=== PATIENT | male | born 1965 | race Caucasian/White ===

== ENCOUNTER 2017-12-27 18:05 | Emergency (ER) | payer OTHER, SELFPAY ==
[2017-12-27 18:06] VITALS: BP 238/150; PULSE 84; RESP 16; TEMP 36.5; O2SAT 97; BMI 39.9
--- NOTE | 2017-12-27 19:14 | US_ITS ---
STUDY: VENOUS DOPPLER ULTRASOUND - RIGHT LOWER EXTREMITY REASON FOR EXAM: Male, 52 years old. Redness and swelling. Cellulitis. TECHNIQUE: Ultrasound evaluation of the deep vein system to include ramirez-scale imaging and compression was performed. Ramirez-scale imaging and Doppler sonographic evaluation, including duplex spectral analysis and qualitative color flow sonography, was performed. COMPARISON: None. FINDINGS: Common Femoral Vein: Normal compression, spontaneity and augmentation. Normal color Doppler. Common Femoral Vein/Greater Saphenous Junction: Normal compression, spontaneity and augmentation. Normal color Doppler. Deep Femoral Vein: Normal compression, spontaneity and augmentation. Normal color Doppler. Femoral Proximal: Normal compression, spontaneity and augmentation. Normal color Doppler. Femoral Middle: Normal compression, spontaneity and augmentation. Normal color Doppler. Femoral Distal: Normal compression, spontaneity and augmentation. Normal color Doppler. Popliteal Vein: Normal compression, spontaneity and augmentation. Normal color Doppler. Posterior Tibial Vein: Normal compression, spontaneity and augmentation. Normal color Doppler. Peroneal Vein: Normal compression, spontaneity and augmentation. Normal color Doppler. There is no demonstrated deep venous thrombosis. US/Venous Duplex Imag/Limited/Uni IMPRESSION: Normal venous Doppler ultrasound of the lower extremity. Electronically Signed: Ash Knight MD at 20:30 EDT , Service support ,
--- NOTE | 2017-12-27 19:14 | ED.VISSUMM ---
- ER Visit Summary Date of Service: 12/27/17 Chief Complaint: Cellulitis History of Present Illness: The patient is a 52 M states he has had spontaneous onset of redness, swelling, pain in the right lower extremity that started 10 days ago but spread quickly within a day that it started. He was seen at urgent care started on Keflex 500 mg 3 times daily ?10 days, he has had significant improvement but the swelling is not gone and it is still faintly red but barely sore now. He went back to urgent care to have them look at it since today is his last day of Keflex. They sent him here. There was no phone call from urgent care. Physical Examination: Vital signs are normal he is well-appearing in no acute distress. He has very faint erythema that is blanching and warmth throughout the right lower leg, stops before the knee. The area is edematous. There is no calf tenderness or Homans sign. Compartments are soft and nondistended and nontender. There are no petechia or purpura. There is a healing small scabbed wound distally just above the lateral malleolus, no abscess. Full range of motion of all joints. Neurovascularly intact distally. Test Results: Duplex venous ultrasound of the right lower extremity is negative for DVT. Emergency Department Course and Treatment: Reassured patient there is no sign of DVT. The appearance of his leg is barely erythematous and swollen, nontender. However, since it is still abnormal, I think he should extend the antibiotic further, as it sounds like cellulitis is the correct diagnosis. I will give him a dose of Zosyn here and extend his cephalexin, he is encouraged to follow-up with a PCP to follow this, as opposed to return outpatient visits to urgent care. Treatment Plan: As above with cephalexin 500 mg 4 times daily ?5 additional days Disposition: Discharge home Impression: Cellulitis right lower leg, improving This note was generated with [employer] dictation software. It may contain incorrect words, spelling, and punctuation that were not noted in review of the chart prior to signing ED Disposition - Plan for ED Patient: Disposition: Home or Assisted Living Chief Complaint: Cellulitis Instructions: Discharge Instructions for Cellulitis Prescriptions: Cephalexin [Keflex] 500 mg PO 4X/DAY #20 cap Referrals: Silvana Kumar DO [STAFF PHYSICIAN] - 2 Days for wound check
[2017-12-27 22:37] VITALS: BP 198/98; PULSE 84; RESP 18; O2SAT 98; O2SAT 99
== END 2017-12-27 22:43 | disposition home or self-care (01) ==
PROVIDERS: Emergency Provider Emergency Medicine
DX: L03.115 Cellulitis of right lower limb (principal); B96.89 Other specified bacterial agents as the cause of diseases classified elsewhere; E66.9 Obesity, unspecified; Z68.39 Body mass index [BMI] 39.0-39.9, adult
CPT/HCPCS: 93971; 96365; 99283; J7050; A4216

== ENCOUNTER 2023-07-11 10:54 | Emergency (ER) | payer BC, OTHER, SELFPAY ==
[2023-07-11] VITALS (13 sets, daily range): BP systolic 167–226; BP diastolic 86–149; PULSE 71–91; RESP 18–27; TEMP 35.7; O2SAT 91–96; BMI 38.9
--- NOTE | 2023-07-11 11:06 | NURSING ---
STROKE ALERT CALLED
--- NOTE | 2023-07-11 11:08 | CT_ITS ---
We are attempting to reach an attending provider to discuss findings. An addendum with communication details will be sent when the communication is complete. EXAM: CT HEAD WITHOUT INTRAVENOUS CONTRAST CLINICAL INDICATION: Neuro deficit, acute, stroke suspected TECHNIQUE: Multiple axial images were obtained of the head without intravenous contrast. This CT exam was performed using one or more of the following dose reduction techniques: automated exposure control, adjustment of the mA and/or kV according to patient size, and/or use of iterative reconstruction technique. COMPARISON: No relevant prior studies available. FINDINGS: BRAIN AND EXTRA-AXIAL SPACES: There is a large intraparenchymal hematoma centered in the right parietal lobe measuring approximately 4.3 x 5.8 x 5.8 cm (approximately 75 mL) with surrounding vasogenic edema and localized mass effect resulting in sulcal effacement and asymmetric narrowing of the right lateral ventricle. Associated proximally 6 mm right left shift of the midline structures at the level of the septum pellucidum. Patent basal cisterns. Patchy white matter hypoattenuation is most commonly due to chronic microvascular ischemic changes in a patient of this age. Chronic microvascular ischemic changes. No evidence of an acute infarct. BONES/JOINTS: Bilateral TMJ arthrosis. No discrete lytic or blastic abnormalities. SINUSES: No significant findings. MASTOID AIR CELLS: No significant effusion. ORBITS: No acute findings. NASAL CAVITY/SEPTUM: Postoperative changes of the paranasal sinuses with diffuse polypoid mucosal thickening in the paranasal sinuses suggesting sinonasal polyposis. ASPECTS: Not applicable. CT/STROKE Brain/Head without Cont IMPRESSION: 1. There is a large intraparenchymal hematoma centered in the right parietal lobe measuring approximately 4.3 x 5.8 x 5.8 cm (approximately 75 mL) with surrounding vasogenic edema and localized mass effect resulting in sulcal effacement and asymmetric narrowing of the right lateral ventricle. Associated proximally 6 mm right left shift of the midline structures at the level of the septum pellucidum. 2. Patchy white matter hypoattenuation is most commonly due to chronic microvascular ischemic changes in a patient of this age. 3. Postoperative changes of the paranasal sinuses with diffuse polypoid mucosal thickening in the paranasal sinuses suggesting sinonasal polyposis. Correlate with history and follow-up as clinically indicated. Electronically Signed: Lv Lin DO at 11:32 EDT ,
--- NOTE | 2023-07-11 11:09 | ED.VIS.STROK ---
HPI History of Present Illness Chief Complaint: Confusion Informant: patient and family Narrative Narrative: Patient brought in by family member around 11 AM due to being confused this morning. He was last seen well and normal last night when he went to bed, estimated around 9 PM. Today he bumped into his son in the garage and not realizing he was right in front of him, and his son told family member that he seemed confused. That was the first time that something wrong was noticed. Patient states he has some discomfort in the right posterior side of his neck but he does not have a headache. He states his vision was off earlier but it seems better now. Denies any chest pain, shortness of breath, recent fall or injury. He was able to walk into triage with family member but staff noted that it was not normal. He does not see a doctor. Family states he called his doctors whenever something is wrong but otherwise does not see them and takes no medications, [id number] or prescription. Family states they checked his blood sugar at home and it was in the 120s, and he also checked his blood pressure prior to coming here and it was 205 systolic. [facility] Medical History Asthma Hypertension Left leg cellulitis Uncontrolled hypertension Home Medications doxycycline monohydrate 100 mg capsule 100 mg PO BID #20 caps 05/20/22 [Rx Last Taken Unknown] sulfamethoxazole 800 mg-trimethoprim 160 mg tablet (Bactrim DS) 1 tab PO BID 05/20/22 [History Last Taken Unknown] Allergy/AdvReac Type Severity Reaction Status Date / Time No Known Allergies Allergy Verified 07/11/23 10:56 Social History Smoking Status: Never smoker ROS ROS ED Review of Systems ROS Unobtainable: other Details: Somewhat limited due to confusion/mental status Constitutional Constitutional ED: Denies chills or fever(s) Eyes Eyes: Reports change in vision; Denies diplopia ENT ENT ED: Denies rhinorrhea or sore throat Cardiovascular Cardiovascular: Reports leg edema; Denies chest pain or palpitations Respiratory/Chest Respiratory/Chest: Denies cough or dyspnea Gastrointestinal Gastrointestinal: Denies abdominal pain, nausea or vomiting Musculoskeletal Musculoskeletal: Reports neck pain; Denies back pain Integumentary Denies abscess or rash Neurologic Neurologic: Reports as per HPI and confusion; Denies headache(s) Psychiatric Psychiatric: Denies suicidal ideation or suicidal thoughts EXAM Physical Exam Const Vital Signs: 07/11/23 10:56 07/11/23 11:11 07/11/23 11:15 Temperature 96.2 F L Temperature Source Temporal Pulse Rate 89 Respiratory Rate 18 Blood Pressure 226/149 H Blood Pressure Mean 174 Pulse Ox 96 96 94 Oxygen Delivery Method Room Air Room Air Room Air 07/11/23 11:15 Temperature Temperature Source Pulse Rate 91 Respiratory Rate 27 H Blood Pressure 209/149 H Blood Pressure Mean 169 Pulse Ox 94 Oxygen Delivery Method Room Air Positive well nourished and well developed General Appearance ED: well developed and NAD HEENT Reports moist mucous membranes normocephalic and atraumatic Eyes PERRL and EOMs intact bilaterally Eyes Narrative: Left hemianopsia, involving both eyes Neck full ROM and supple Neck Narrative: Carotid bruits Chest Wall inspection of chest normal and palpation of chest normal Resp normal respiratory effort and clear to auscultation bilaterally Cardio regular rate, regular rhythm and no murmurs GI non-tender and non-distended Auscultation: normoactive bowel sounds Palpation: soft Back/Spine no CVA tenderness General Back: other FROM Extremity normal to inspection General Extremety ED: Yes edema; Negative for pulses abnormal or tenderness General Extremity: edema bilateral lower extremity Details: moderate (Without signs of cellulitis/tenderness); Negative for pulses abnormal Neuro CN's II-XII intact bilaterally Neuro Narrative: Somewhat disoriented, but correct month and age and oriented to person and place. Weak on left side see attached NIHSS Sensorium / Orientation: awake and alert Psych Psych Narrative: Flat affect Skin no rashes or lesions noted and no wounds NIHSS NIHSS Initial: 1a Level of Consciousness: 0 1b LOC Questions (Score 2 if aphasic/stupor): 0 1c LOC Commands (Only score 1st attempt): 0 2 Best Gaze (If aphasic, use reflexive mvmts.): 1 3 Visual: 2 4 Facial Palsy: 0 5 Motor Arm Right (UN = amputation/fusion): 0 5 Motor Arm Left: 3 6 Motor Leg Right: 1 6 Motor Leg Left: 2 7 Limb ataxia (Only + if out of proportion): 0 8 Sensory (Aphasia/stupor=0 or 1, coma=2): 1 9 Best Language: 0 10 Dysarthria (mute, coma=2, intubated=UN): 1 11 Extinction and Inattention (only scored if +): 0 Total Score: 11 MDM MDM MDM Narrative Medical decision making narrative: Patient was brought from triage to her room and assessed by myself and nursing expeditiously upon arrival, and noticed that he has acute neurologic deficits and stroke team was called before my exam was finished, and he was sent to CT expeditiously, seen that it is an acute hemorrhage, approximately 5-6 mm shift according to radiology without herniation and the hematoma is approximately 75 mL, discussed with family who are comfortable with him going to [facility], discussed with neurosurgery there and arranging for helicopter transportation. In the meantime orders were manipulated, in order to get him on Cardene and keep his blood pressure is under control as we can. At this time there is maybe a millimeter of shift, with this hemorrhage it does not intraventricular and the ventricles appear to be open, and clinically he is keenly alert with patent airway and breathing and I do not think he needs to be intubated at this time which I discussed with neurosurgery. Discussed also with Dr. Martines with stroke neurology, will be excepted by ED physician Dr. Price, also spoke with [facility] ([facility]), they are flying and en route. History & Record Review Discussion w/independent historian: Patient and Family Lab Data Attestation: I reviewed the patient's lab results. Lab results narrative: BGT 205 Labs: Laboratory Results - last 24 hr 07/11/23 11:10 WBC 8.2 RBC 6.05 Hgb 17.2 H Hct 51.8 MCV 85.6 MCH 28.4 MCHC 33.2 RDW Std Deviation 39.6 RDW Coeff of Rm 12.7 Plt Count 195 MPV 12.1 H Immature Gran % (Auto) 0.200 Neut % (Auto) 72.7 H Lymph % (Auto) 17.7 L [place] % (Auto) 6.3 Eos % (Auto) 2.6 Baso % (Auto) 0.5 Absolute Neuts (auto) 6.0 Absolute Lymphs (auto) 1.45 Nucleated RBC % 0 PT 13.7 INR 1.1 APTT 26.5 Sodium 139 Potassium 3.7 Chloride 104 Carbon Dioxide 30.0 Anion Gap 5 BUN 17 Creatinine 1.12 Estim Creat Clear Calc 72.42 Est GFR (MDRD) Af Amer 86 Est GFR (MDRD) Non-Af 71 BUN/Creatinine Ratio 15.2 Glucose 204 H Calcium 9.0 Troponin I High Sens 37 Rhythm Strip Rhythm Strip: Sinus Rhythm Rate: 90 Ectopy: None EKG Initial EKG: Attestation: I personally reviewed and interpreted this EKG as follows: Interpretation: Sinus Rhythm, No Acute Injury Pattern and Non-Specific ST Changes Management Discussion w/another healthcare provider: [facility] (Neurosurg Dr. Jones, [id number]; neuro Dr. Martines) and Radiologist Stroke Documentation Questions Stroke Team Activated: Yes IV Thrombolytic Administered: No (outside window due to unk onset and LKW last night) Critical Care Time Critical Care Time: Yes Critical care time (excluding procedures): 30-74 minutes (40 min), Including time spent:, Discussing w/Patient &/or Family/[employer] Operator, Discussing w/Consultants, Arranging Admission or Transfer and Performing Direct Patient Care at Bedside Discharge Plan Triage Chief Complaint: Confusion ED Provider: Ash Potts Dx/Rx/DC Orders Clinical Impression: Hypertensive emergency, Hemorrhagic stroke Prescriptions: No Action sulfamethoxazole-trimethoprim [Bactrim DS] 800-160 mg tablet 1 tab PO BID doxycycline monohydrate 100 mg capsule 100 mg PO BID Qty: 20 0RF Primary Care Provider: Care Physician,No Primary Referrals: Care Physician,No Primary [Primary Care Provider] - Disposition Disposition: Acute Care Hospital Discharge Location: [facility]
[2023-07-11 11:14] LABS: Absolute Lymphocyte Count 1.45 X10^3/uL (0.83-4.51); Basophil# 0.04 X10^3/uL; Basophil% 0.5 % (0-1); Eosinophil# 0.21 X10^3/uL; Eosinophils% 2.6 % (0-5); Hematocrit 51.8 % (40-54); Hemoglobin 17.2 g/dL (13.0-16.5); Lymphocyte # 1.45 X10^3/ul (0.83-4.51); Lymphocyte % 17.7 % (19-41); Mean Corp Hgb Conc 33.2 g/dL (32-36); Mean Corpuscular Hgb 28.4 pg (27.0-32.0); Mean Corpuscular Volume 85.6 fL (80-94); Mean Platelet Vol. 12.1 fl (6.2-12.0); Monocyte# 0.52 X10^3/uL; Monocyte% 6.3 % (0-10); NRBC Flagged by Analyzer 0 % (0-5); Neutrophil # 5.97 X10^3/uL (2.7-7.7); Neutrophil % 72.7 % (47-70); Platelet Count 195 K/mm3 (150-450); RBC Distribution Width CV 12.7 % (11.6-14.6); RBC Distribution Width SD 39.6 fl (35.1-43.9); Red Blood Count 6.05 M/mm3 (4.6-6.2); White Blood Count 8.2 K/mm3 (4.4-11.0)
[2023-07-11] MEDS: Labetalol (Prefilled) 20 MG/4 ML IV ×2 (11:20→11:31)
[2023-07-11 11:26] LABS: International Normalized Ratio 1.1; Prothrombin Time (Protime)PT. 13.7 SECONDS (11.7-14.9)
[2023-07-11 11:27] LABS: Partial Thromboplast Time 26.5 Seconds (24.1-36.2)
--- NOTE | 2023-07-11 11:30 | NURSING ---
CALLED [facility], ETA IS 11 MIN
[2023-07-11 11:32] LABS: Anion Gap 5 (5-15); BUN 17 mg/dL (7-18); BUN/Creat Ratio 15.2 RATIO (10-20); Chloride 104 mmol/L (98-107); Creatinine, Serum 1.12 mg/dL (0.70-1.30); EST Glomerular Filtration Rate 71 mL/min (>60); Est Glom Filt Rate - Afr Amer 86 mL/min (>60); Estimated Creatinine Clearance 72.42 ml/min; Glucose 204 mg/dL (74-106); Potassium 3.7 mmol/L (3.5-5.1); Sodium Level 139 mmol/L (136-145); Troponin-I HS 37 pg/mL (3.0-78.0)
[2023-07-11] MEDS: Nicardipine HCl-0.9% Sod Chlor 20 MG/200 ML IV.SOLN 50 MG CONT INF (11:35)
[2023-07-11] MEDS: Ondansetron 4 MG/2 ML Vial IV (11:44)
[2023-07-11] MEDS: Nicardipine HCl-0.9% Sod Chlor 20 MG/200 ML IV.SOLN 100 MG CONT INF (11:48)
[2023-07-11 12:04] LABS: Bedside Glucose 206 mg/dL (74-106)
--- NOTE | 2023-07-11 12:06 | ED.RN ---
On arrival of [facility] crew at bedside, patient blood pressure checks and remains >160 following recent increase and need for increase; crew aware and states their parameters are to maintain >160. Patient Cardene infusing at 10mg/hr on transition to their equipment w/ blood pressure reading 165/98; not following our protocol for increase to maintain at or less than 140 SBP. On [facility] equipment patient's blood pressures as noted in vital signs documentation.
== END 2023-07-11 12:19 | disposition short-term general hospital (02) ==
PROVIDERS: Emergency Provider Emergency Medicine; Visit Provider Emergency Medicine
DX: I63.9 Cerebral infarction, unspecified (principal); I62.9 Nontraumatic intracranial hemorrhage, unspecified; I16.1 Hypertensive emergency
CPT/HCPCS: 70450; 80048; 82962; 84484; 85025; 85610; 85730; 93005; 96374; 96375; 99284; J7040; A4216; J2405